=== PATIENT | male | born 1950 | race Caucasian/White ===

== ENCOUNTER → 2023-09-04 10:41 | Outpatient (REF) | payer MEDICARE, BC, SELFPAY ==
[2023-09-04 12:12] LABS: Blood Urea Nitrogen 22 mg/dl (9-20); Calcium 9.9 mg/dl (8.4-10.2); Carbon Dioxide 27 mmol/L (22-30); Chloride 105 mmol/L (98-107); Glucose 98 mg/dl (70-99); HDL Cholesterol 43 mg/dl; LDL Cholesterol, Calculated 120 mg/dl; Potassium 4.8 mmol/L (3.5-5.1); Sodium 138 mmol/L (135-145); Total Cholesterol 207 mg/dl (50-199); Triglyceride 223 mg/dl (10-149); Very Low Density Lipoprotein 44 mg/dl (0-30); eGFR 52.74
== END ==
LOC: REG 10:41
PROVIDERS: ATTENDING PHYSICIAN Internal Medicine Cardiovascular Disease; FAMILY PHYSICIAN Family Medicine
DX: I77.810 Thoracic aortic ectasia (principal); E78.5 Hyperlipidemia, unspecified; I48.0 Paroxysmal atrial fibrillation
CPT/HCPCS: 36415; 80048; 80061

== ENCOUNTER → 2023-09-05 10:13 | Outpatient (REF) | payer MEDICARE, BC, SELFPAY | LOC: REG 10:13 | PROVIDERS: ATTENDING PHYSICIAN Internal Medicine Cardiovascular Disease; FAMILY PHYSICIAN Family Medicine | DX: I77.810 Thoracic aortic ectasia (principal) | CPT/HCPCS: 36415; 82565 ==

== ENCOUNTER → 2023-09-08 07:39 | Outpatient (REF) | payer MEDICARE, BC, SELFPAY | LOC: RAD 07:39 | PROVIDERS: ATTENDING PHYSICIAN Internal Medicine Cardiovascular Disease; FAMILY PHYSICIAN Family Medicine | DX: I77.810 Thoracic aortic ectasia (principal) | CPT/HCPCS: 71275; Q9967 ==

== ENCOUNTER 2024-08-02 13:55 | Inpatient (IN) | payer MEDICARE, BC, SELFPAY ==
[2024-08-02 09:07] VITALS: BP 130/86
[2024-08-02] MEDS: NSS 1000 IV ×2 (09:46→15:21)
[2024-08-02] MEDS: DILAUDID 0.5 MG IV ×2 (09:46→19:50)
--- NOTE | 2024-08-02 09:46 | ED.GENMED ---
History of Present Illness
General
Chief Complaint: Abdominal Symptoms
Source: patient and spouse
Exam Limitations: none
Time Seen by Provider: 08/02/24 09:15
Nursing documentation reviewed up to this point in time: agreed with
History of Present Illness
History of Present Illness:
73-year-old male status post prostatectomy for 5 days of lower abdominal pain cramping some loose stools and constipation nausea without vomiting positive subjective fever no prior episodes, he has had a colonoscopy previously, no history of
diverticulitis still has his appendix no pain with urination
Past History
Past History
ED Past Medical History: HTN, Hypercholesterolemia and Other (kidney stone)
ED Past Surgical History: Urological
Social History
Tobacco: Non-smoker
Alcohol: None
Personal:
Living: with family
Employment: Retired
Review of Systems
Review of Systems
All Other Systems: Not applicable
Constitutional: Reports fever and fatigue
EENT: Reports no symptoms
Respiratory: Reports no symptoms
ABD/GI: Reports abdominal pain, nausea, diarrhea and constipated
: Reports no symptoms
Musculoskeletal: Reports no symptoms
Skin: Reports no symptoms
Neurological: Reports no symptoms
Phy Exam
Physical Exam
Physical Exam:
Physical Exam
General: no apparent distress, not acutely ill
Neck: No jaundice
Heart: s1/s2 regular rate and rhythm, no murmur. equal radial pulses.
Lungs: no acute respiratory distress. clear bilaterally
Abdomen: Tender right greater than left lower abdomen
Neuro: alert and oriented. no focal neurological deficits
Skin: no rash
Psychiatric: well kept. interactive and cooperative
Extremities: no edema.
Course
Orders/Labs/Results
Orders:
Orders
08/02/24 09:41
IV Insert/Care/Rem.- Treatment PRN
0.9% Sodium Chloride 1000 ml [Nss] 1,000 ml IV BOLUS
HYDROmorphone [Dilaudid] 0.5 mg IV NOW STA
Ondansetron Injectable [Zofran] 4 mg IV NOW STA
08/02/24 09:42
CT Abd/Pel (IV only)-DH only Urgent
Comment:
Reason For Exam: Lower abdominal pain
08/02/24 09:43
Complete Blood Count/With Diff Urgent
Comprehensive Metabolic Panel Urgent
08/02/24 11:21
Urinalysis Reflex To Culture Urgent
Date Specimen was Collected: 08/02/24
Time Specimen was Collected: 11:07
08/02/24 13:30
Piperacillin/Tazo 3.375 Gram [Zosyn] 3.375 gram in 50 ml IV NOW
Abnormal Lab Results
08/02/24
09:43
Absolute Neuts (auto) 7.8 H 10^3/uL
(1.4-6.5)
Absolute Lymphs (auto) 0.8 L 10^3/uL
(1.2-3.4)
Absolute Monos (auto) 0.9 H 10^3/uL
(0.1-0.6)
Neutrophils % 80.7 H %
(42.2-75.2)
Lymphocytes % 8.3 L %
(20.5-51.1)
Carbon Dioxide 21 L mmol/L
(22-30)
Glucose 124 H mg/dl
(70-99)
08/02/24 09:43
08/02/24 09:43
Vital Signs
Initial and Last Documented VS:
Initial Vital Signs
Temp Pulse Resp BP Pulse Ox
98.5 F 82 16 130/86 98
08/02/24 09:07 08/02/24 09:07 08/02/24 09:07 08/02/24 09:07 08/02/24 09:07
Last Documented Vital Signs
Temp Pulse Resp BP Pulse Ox
98.5 F 82 16 130/86 98
08/02/24 09:07 08/02/24 09:07 08/02/24 09:07 08/02/24 09:07 08/02/24 09:48
MDM/Problems Addressed
Differential Diagnosis Includes:
Appendicitis diverticulitis UTI other
MDM/Problems Addressed:
Abdominal pain
Chronic conditions affecting care: Previous abdomnial surgery
Acute Exacerbation and/or Progression of Chronic Illness: Previous abdomnial surgery
*Pulse Oximetry
SaO2: 98
Oxygen Mode of Delivery: Room air
Patient hypoxic: no
*Critical Care Note
Total Time (30-74mins, 75-104mins- exclusive of procedures): Not Applicable
Update Note
Update Note:
1:[address] noted patient still with mild tenderness will start on antibiotics
Message sent to hospitalist and colorectal surgery
ED Attending Note
-
Portions of this chart may have been created with voice recognition software.� Occasional wrong word or��sound alike� substitutions may have occurred due to the inherent limitations of voice recognition software.
Discharge Plan
Departure
Patient Disposition: Admit
Date of Disposition: 08/02/24
Time of Disposition: 13:33
Presentation/result/management discussed w/ accepting MD/DO: Hospitalist
Patient with high blood pressure during this ER visit?: No
Condition: Good
Discharge Problem:
Diverticulitis
Prescriptions:
No Action
Advil
2 tab PO PRN PRN (Reason: pain)
azelastine 1 SPRAY aerosol,spray
1 spray intranasal BID
rosuvastatin 10 MG tablet
10 mg PO QPM
Loratadine
10 mg PO PRN PRN (Reason: allergies)
lisinopril [Prinivil] 20 MG tablet
20 mg PO BID
phenazopyridine 200 MG tablet
200 mg PO TID Qty: 15 0RF
metoprolol succinate 50 MG tablet extended release 24 hr
50 mg PO DAILY Qty: 20 0RF
Referrals:
Apolinar Banuelos MD [Family Provider, Family Practice]
Interventions
Interventions:
WP-[id number] Assessment Last Done: 08/02/24 10:00
Discharge Date and Time
Print Language: PALAUAN
[2024-08-02] MEDS: ZOFRAN 4 MG IV (09:47)
[2024-08-02 09:49] LABS: % Basophils 0.4 % (0-2); % Eosinophils 1.1 % (0-6); % Immature Granulocytes 0.4 % (0-0.5); % Lymphocytes 8.3 % (20.5-51.1); % Monocytes 9.1 % (1.7-9.3); % Neutrophils 80.7 % (42.2-75.2); Absolute Eosinophils 0.1 10^3/uL (0-0.7); Absolute Lymphocytes 0.8 10^3/uL (1.2-3.4); Absolute Monocytes 0.9 10^3/uL (0.1-0.6); Absolute Neutrophils 7.8 10^3/uL (1.4-6.5); Hematocrit 41.1 % (39.0-52.0); Hemoglobin 14.3 g/dL (13.0-18.0); Mean Corp Hgb Conc. 34.8 g/dL (33.0-37.0); Mean Corpuscular Hgb 29.9 pg (27.0-31.0); Mean Corpuscular Volume 85.8 fL (80.0-94.0); Mean Platelet Volume 9.4 fL (7.4-10.4); Nucleated Red Blood Cells % 0 % (-); Platelet Count 236 10^3/uL (130-400); Red Blood Cell Count 4.79 10^6/uL (4.70-6.10); Red Cell Dist. Width 12.9 % (11.5-14.5); White Blood Cell Count 9.7 10^3/uL (4.8-10.8)
[2024-08-02 10:11] LABS: ALT (SGPT) 20 U/L (0-50); AST (SGOT) 23 U/L (17-59); Albumin 3.7 g/dl (3.5-5.0); Alkaline Phosphatase 110 U/L (38-126); Blood Urea Nitrogen 20 mg/dl (9-20); Calcium 9.8 mg/dl (8.4-10.2); Carbon Dioxide 21 mmol/L (22-30); Chloride 106 mmol/L (98-107); Glucose 124 mg/dl (70-99); Potassium 4.3 mmol/L (3.5-5.1); Sodium 137 mmol/L (135-145); Total Bilirubin 0.8 mg/dl (0.2-1.3); Total Protein 6.4 g/dl (6.3-8.2); eGFR > 60.00
[2024-08-02 11:34] LABS: Urine Albumin Negative (Neg - Trace); Urine Bilirubin Negative (Negative); Urine Character Clear (Clear); Urine Color Yellow; Urine Glucose Negative (Negative); Urine Ketone Negative (Negative); Urine Leukocyte Negative (Negative); Urine Nitrite Negative (Negative); Urine Occult Blood Negative (Negative); Urine Urobilinogen Negative (Neg - 1+)
[2024-08-02] MEDS: ZOSYN 50 IV ×2 (13:41→19:50)
[2024-08-02 13:44] VITALS: BP 117/86
--- NOTE | 2024-08-02 13:44 | HPS.HSE ---
Family Physician
-
Family Physician: Apolinar Banuelos
Chief Complaint
-
abdominal pain
History of Present Illness
73-year-old male with past medical history of paroxysmal atrial fibrillation on Xarelto, BPH status post TURP, hypertension, hyperlipidemia, nephrolithiasis, right inguinal hernia status post surgery, presenting with 5 days of lower abdominal pain,
cramping and some slight loose stools with overall constipation and nausea without vomiting. He did have chills. No prior history of diverticulitis. Denies any blood in the stool.
Denies smoking or alcohol use.
Medical History
Past Medical History
Past Medical History: Reports Other (paroxysmal atrial fibrillation on Xarelto, BPH status post TURP, hypertension, hyperlipidemia, nephrolithiasis, right inguinal hernia status post surgery,)
Past Surgical History: Reports None
Social History
Tobacco: Non-smoker
Alcohol: None
Drug: None
Family History
Family History: Not pertinent
Allergies / Home Medications
Allergies reflects when Allergies were last updated in [employer].
Home Medications with original date entered in [employer]
Allergy/Medication List:
Allergies
Allergy/AdvReac Type Severity Reaction Status Date / Time
seasonal Allergy Shortness Uncoded 08/02/24 09:10
of Breath
Home Medications
Advil 2 tab PO PRN PRN pain 03/08/11
Loratadine 10 mg PO PRN PRN allergies 11/04/19
azelastine 137 mcg (0.1 %) nasal spray 1 spray intranasal BID 11/04/19
lisinopril 20 mg tablet (Prinivil) 20 mg PO BID 11/04/19
rosuvastatin 10 mg tablet 10 mg PO QPM 11/04/19
metoprolol succinate 50 mg tablet,extended release 24 hr 50 mg PO DAILY #20 tabs 11/06/19
phenazopyridine 200 mg tablet 200 mg PO TID #15 tabs 11/06/19
Review of Systems
-
History Source: Patient
A 12 point ROS was completed and negative except as noted: Yes
Constitutional: Reports No Symptoms
EENT: Reports No Symptoms
Respiratory: Reports No Symptoms
Cardiac: Reports No Symptoms
Abdomen/GI: Reports See HPI
: Reports No Symptoms
Musculoskeletal: Reports No Symptoms
Skin: Reports No Symptoms
Neurological: Reports No Symptoms
Endocrine: Reports No Symptoms
Hematologic/Lymphatic: Reports No Symptoms
Psych: Reports No Symptoms
Physical Exam
Vital Signs
Vital Signs
Temp Pulse Resp BP Pulse Ox
98.5 F 82 16 130/86 98
08/02/24 09:07 08/02/24 09:07 08/02/24 09:07 08/02/24 09:07 08/02/24 09:48
Physical Exam
General: Well Developed, Well Nourished and No Apparent Distress
HEENT: NormoCephalic, Moist mucous membranes and Atraumatic
Respiratory: Clear
Cardiac: S1/S2 and Regular Rhythm; No Murmur or Rub
GI: Soft, Non Distended, Normal Bowel Sounds and Tender (lower quadrants ); No Organomegaly
Rectal: Deferred by Provider
Musculoskeletal: No Clubbing, No Cyanosis and No Edema
Skin: No Rash
Neuro: Nonfocal/grossly intact
Laboratory Results
-
08/02/24 09:43
08/02/24 09:43
Laboratory Results
Total Bilirubin 0.8 mg/dl (0.2-1.3) 08/02/24 09:43
AST 23 U/L (17-59) 08/02/24 09:43
ALT 20 U/L (0-50) 08/02/24 09:43
Alkaline Phosphatase 110 U/L (38-126) 08/02/24 09:43
Data Reviewed
-
Lab Data: Labs Reviewed by me
Old Records: Reviewed
Impression/Plan
-
IMPRESSION:
PLAN:
# Acute diverticulitis with extraluminal gas/fluid collection
- N.p.o.
- IV fluids
- Zosyn
- Dilaudid, Zofran as needed
-Hold Xarelto in case surgery recommended
- Colorectal surgery consulted
Paroxysmal atrial fibrillation
- Hold Xarelto
BPH status post TURP
Essential hypertension
- Continue metoprolol, lisinopril
Hyperlipidemia
- Continue statin
Nephrolithiasis status post surgery
- Now with stable postsurgical incisional hernia
History of right inguinal hernia status post surgery
Full code
DVT prophylaxis�SCDs
N.p.o.
[2024-08-02 14:47] VITALS: BP 141/82
[2024-08-02 14:48] VITALS: BMI 25.6
--- NOTE | 2024-08-02 16:28 | CON.CRS ---
Consultation
-
Date/Time Consultation Performed: 08/02/2024
Performing Provider: Pascual Saunders MD
Reason for Consultation: Diverticulitis
Medical History
-
History of Present Illness:
73-year-old male with PMH of A-fib (on Xarelto, last dose PM of 08/01), prostate cancer s/p prostatectomy, HTN, HLD, history of kidney stones who presents with 5-6 days of persistent lower abdominal pain. It did worsen 2 to 3 days ago and has been
stable since. He denies any N/V. His BMs have been more frequent and looser, but denies diarrhea or hematochezia. Denies urinary symptoms. Last colonoscopy was 08/[address] Small, which showed diverticulosis, hemorrhoids and 2 rectal HP's,
recommended to repeat in 5 years. In the ED, WBC 9.7, CT showing diverticulitis with localized perforation and collection of about 2 x 1.5 cm.
Past Medical History
Past Medical History: Other (as above)
Past Surgical History: Other (TURP, right IHR, vasectomy, prostatectomy)
Social History
Tobacco: Non-Smoker
Alcohol: None
Drug: None
Personal:
Family History
Family History: Other (Colon cancer in father at age 65)
Allergies / Home Medications
Allergy/AdvReac Type Severity Reaction Status Date / Time
seasonal Allergy Shortness Uncoded 08/02/24 09:10
of Breath
�Medication �Instructions �Recorded �Confirmed �Type
lisinopril 20 mg tablet (Prinivil) 20 mg PO BID 11/04/19 08/02/24 History
rosuvastatin 10 mg tablet 10 mg PO QPM 11/04/19 08/02/24 History
metoprolol succinate 50 mg 25 mg PO QPM 08/02/24 08/02/24 History
tablet,extended release 24 hr
rivaroxaban 20 mg tablet (Xarelto) 20 mg PO QPM 08/02/24 08/02/24 History
Review of Systems
-
A 10 point review of systems was completed, and was negative except as per HPI.
Physical Exam
Vital Signs
Temp 97.6 F 08/02/24 14:47
Pulse 82 08/02/24 14:47
Resp Rate 18 08/02/24 14:47
Blood pressure 141/82 08/02/24 14:47
SaO2 99 08/02/24 15:43
08/01/24 08/02/24 08/03/24
06:59 06:59 06:59
Actual Weight 76.26 kg
Body Mass Index (BMI) 25.6
Lab Results / Allergies
08/02/24 09:43
08/02/24 09:43
WBC 9.7 10^3/uL (4.8-10.8) 08/02/24 09:43
Hgb 14.3 g/dL (13.0-18.0) 08/02/24 09:43
Hct 41.1 % (39.0-52.0) 08/02/24 09:43
Plt Count 236 10^3/uL (130-400) 08/02/24 09:43
Abs Immat Gran (auto) 0.0 10^3/uL (0-0.05) 08/02/24 09:43
Neutrophils % 80.7 % (42.2-75.2) H 08/02/24 09:43
Allergy/AdvReac Type Severity Reaction Status Date / Time
seasonal Allergy Shortness Uncoded 08/02/24 09:10
of Breath
Physical Exam
General: Well Developed, Well Nourished and No Apparent Distress
HEENT: Normocephalic and Atraumatic
Respiratory: Non Labored Respirations
GI: Soft, Non Distended and Tender (Mildly tender in the bilateral lower quadrants, no rebound or guarding)
Skin: Warm and Dry
Neuro: AO x 3
Assessment / Plan
-
73-year-old male with PMH of A-fib (on Xarelto, last dose PM of 08/01), prostate cancer s/p prostatectomy, HTN, HLD, history of kidney stones who presents with 5-6 days of persistent lower abdominal pain. It did worsen 2 to 3 days ago and has been
stable since. He denies any N/V. His BMs have been more frequent and looser, but denies diarrhea or hematochezia. Denies urinary symptoms. Last colonoscopy was 08/[address] Small, which showed diverticulosis, hemorrhoids and 2 rectal HP's,
recommended to repeat in 5 years. In the ED, WBC 9.7, CT showing diverticulitis with localized perforation and collection of about 2 x 1.5 cm.
AFVSS
�Acute diverticulitis, first episode; no acute surgical intervention currently
�Discussed treatment options including nonoperative management and surgery, and discussed risks regarding each, including but not limited to, urgent surgery will likely include larger incision and ostomy creation
�Okay for clears with p.o. meds
�Continue IV Zosyn
�Pain control with Dilaudid as needed; recommend adding Toradol and Tylenol ATC
� Recommend DVT PPx with Lovenox; hold Xarelto in case procedure needed
� OOB/I-S
� Appreciate hospitalist
[2024-08-02] MEDS: TOPROL XL 25 MG PO (17:21)
[2024-08-02] MEDS: CRESTOR 10 MG PO (17:21)
[2024-08-02] MEDS: ZESTRIL 20 MG PO (19:50)
[2024-08-02 23:00] VITALS: BP 110/68
[2024-08-03] MEDS: ZOSYN 50 IV ×4 (01:13→20:04)
[2024-08-03] MEDS: NSS 1000 IV (01:14)
[2024-08-03] MEDS: DILAUDID 0.5 MG IV ×2 (01:14→06:53)
[2024-08-03 05:18] LABS: % Basophils 0.7 % (0-2); % Eosinophils 2.5 % (0-6); % Immature Granulocytes 0.5 % (0-0.5); % Lymphocytes 11.7 % (20.5-51.1); % Monocytes 10.6 % (1.7-9.3); Absolute Basophils 0.1 10^3/uL (0-0.2); Absolute Eosinophils 0.2 10^3/uL (0-0.7); Absolute Lymphocytes 0.9 10^3/uL (1.2-3.4); Absolute Monocytes 0.8 10^3/uL (0.1-0.6); Absolute Neutrophils 5.4 10^3/uL (1.4-6.5); Hematocrit 37.6 % (39.0-52.0); Hemoglobin 12.6 g/dL (13.0-18.0); Mean Corp Hgb Conc. 33.5 g/dL (33.0-37.0); Mean Corpuscular Hgb 29.9 pg (27.0-31.0); Mean Corpuscular Volume 89.3 fL (80.0-94.0); Mean Platelet Volume 9.3 fL (7.4-10.4); Nucleated Red Blood Cells % 0 % (-); Platelet Count 229 10^3/uL (130-400); Red Blood Cell Count 4.21 10^6/uL (4.70-6.10); Red Cell Dist. Width 13.1 % (11.5-14.5); White Blood Cell Count 7.3 10^3/uL (4.8-10.8)
[2024-08-03 05:45] LABS: ALT (SGPT) 15 U/L (0-50); AST (SGOT) 17 U/L (17-59); Albumin 3.2 g/dl (3.5-5.0); Alkaline Phosphatase 90 U/L (38-126); Blood Urea Nitrogen 20 mg/dl (9-20); Carbon Dioxide 22 mmol/L (22-30); Chloride 108 mmol/L (98-107); Estimated Creatinine Clearance 44 ml/min; Glucose 82 mg/dl (70-99); Potassium 4.6 mmol/L (3.5-5.1); Sodium 136 mmol/L (135-145); Total Protein 5.5 g/dl (6.3-8.2); eGFR 52.41
[2024-08-03 07:31] VITALS: BP 106/59
[2024-08-03] MEDS: ZESTRIL PO (09:18)
--- NOTE | 2024-08-03 09:42 | W.PN.HOSP.TC ---
Addendum entered and electronically signed by Dominga Luu MD 08/03/24 11:10:
Addendum
Known CKD stage II
Creatinine seems KELLY on CKD II
Holding Lisinopril since SBP on low side
Monitor for retention, known Prostate cancer
End
Original Note:
Today's Communication/Plan
-
Can advance diet
Can resume Xarelto if ok with surgery
Asked pt to cut back on Dialudid and use Tylenol as needed
Assessment / Plan
Assessment / Plan
Physical Exam
General: Well Developed, Well Nourished and No Apparent Distress
HEENT: Normocephalic, Moist mucous membranes and Atraumatic
Respiratory: Clear
Cardiac: S1/S2, + murmur.
GI: Soft, Non Distended, Normal Bowel Sounds and very mild tender (lower quadrants )
Rectal: no bleeding
Musculoskeletal: No Clubbing, No Cyanosis and No Edema
Skin: No Rash
Neuro: Nonfocal/grossly intact
Psych: calm
# Acute diverticulitis with extraluminal gas/fluid collection
He is feeling better, he reported Dilaudid was for gas pain, insomnia per staff
Exam, no significant tenderness noted
Can advance diet
c/w IV Zosyn
- Colorectal surgery consulted
Paroxysmal atrial fibrillation
- Hold Xarelto
BPH status post TURP
Essential hypertension
- Continue metoprolol, lisinopril
Hyperlipidemia
- Continue statin
Nephrolithiasis status post surgery
- Now with stable postsurgical incisional hernia
History of right inguinal hernia status post surgery
Total time spent to see the patient, examine the patient, review data and lab result, discuss treatment plan with patient, nursing staff around 55 minutes
Anticipated Discharge: Within 24 hours
Subjective/Interval History
-
Date of Service: August 03, 2024
Less abdominal pain
No nausea
No fevers
Objective Data
-
Labs:
Laboratory Results
08/03/24
04:30
WBC 7.3
Hgb 12.6 L
Hct 37.6 L
Plt Count 229
Sodium 136
Potassium 4.6
Chloride 108 H
Carbon Dioxide 22
BUN 20
Creatinine 1.4 H
Glucose 82
Calcium 9.0
Total Bilirubin 1.0
AST 17
ALT 15
Alkaline Phosphatase 90
Vital Signs:
Vital Signs
Temp Pulse Resp BP Pulse Ox
98.4 F 68 16 106/59 95
08/03/24 07:31 08/03/24 07:31 08/03/24 07:31 08/03/24 07:31 08/03/24 07:31
I&O
08/02/24 08/03/24 08/04/24
06:59 06:59 06:59
Output Total 800 / 800 125 / 125
Balance -800 / -800 -125 / -125
--- NOTE | 2024-08-03 11:14 | W.PN.CRS1 ---
Addendum entered and electronically signed by Pascual Saunders MD 08/03/24 11:27:
I saw and examined the patient.
The SPIRITUAL CARE COORDINATOR's note was reviewed and I agree with the note.
Comment:
73-year-old male with PMH of A-fib (on Xarelto, last dose PM of 08/01), prostate cancer s/p prostatectomy, HTN, HLD, history of kidney stones who presents with 5-6 days of persistent lower abdominal pain. It did worsen 2 to 3 days [employer] and has been
stable since. He denies any N/V. His BMs have been more frequent and looser, but denies diarrhea or hematochezia. Denies urinary symptoms. Last colonoscopy was 08/[address] Small, which showed diverticulosis, hemorrhoids and 2 rectal HP's,
recommended to repeat in 5 years. In the ED, WBC 9.7, CT showing diverticulitis with localized perforation and collection of about 2 x 1.5 cm. Admitted and being treated with non-op measures
AFVSS, ABD soft, nondistended, minimally tender, no R/G; palpable epigastric hernia repair easily reducible
WBC 7.3 from 9.7, CRP 148 from 183, Cr 1.4
�Acute diverticulitis, first episode; no acute surgical intervention currently
�Cont non-op
�Okay for clears with p.o. meds, advance to regular for lunch/dinner
�Continue IV Zosyn
�Pain control with Dilaudid as needed; recommend Tylenol ATC and tramadol PRN
�Start subQ hep; hold Xarelto; if tolerating regular, ok to restart tmrw
� OOB/I-S
� Appreciate hospitalist; elevation of Cr, concern for mild KELLY, cont IVF
Dispo- if tolerating regular, ok for d/c once medically clear
Original Note:
Today's Communication / Plan
-
ADAT
C/W ABX
Assessment/Plan
-
73 yo male presenting with diverticulitis with symptomatic improvement on IV ABX
AFVSS
Cr mildly elevated from previous
No leukocytosis, CRP trending down
Exam improved
--Clear liquids initiated this AM, ok to ADAT to low residue if no worsening pain
--Xarelto on hold in case surgery warranted, ok to resume tomorrow if tolerating dietary advancements
--c/w antibiotics
--Medical management as per primary team
Subjective Data
Subjective Data
Date of Service: August 03, 2024
Patient seen and examined at bedside with Dr. Saunders. Pain much improved. Denies n/v. Passing flatus.
Objective Data
-
Vital Signs
Temp Pulse Resp BP Pulse Ox
98.4 F 68 16 106/59 95
08/03/24 07:31 08/03/24 07:31 08/03/24 07:31 08/03/24 07:31 08/03/24 07:31
Intake & Output
08/02/24 08/03/24 08/04/24
06:59 06:59 06:59
Intake Total 480 / 480
Output Total 800 / 800 125 / 125
Balance -800 / -800 355 / 355
Intake:
Oral fluids 480 / 480
Output:
Urine, Voided 800 / 800 125 / 125
Lab Results
08/03/24 04:30
08/03/24 04:30
Physical Exam
-
General: No Acute Distress
Abdomen: Soft, Non Distended and Tender (minimal to LLQ)
Skin: Warm and Dry
[2024-08-03 15:10] VITALS: BP 112/65
--- NOTE | 2024-08-03 15:52 | CM ---
Met with patient to obtain information for assessment. Patient stated that he lives with his and sons in a two story house with no steps to enter. He is independent with his ADLs, personal care, dressing and bathing. 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 He has no DME. He has not been to a SNF. He has not had VN in the past.
Patient has a prescription plan and uses, [facility] for all of his medications.
Patient's PCP is, Apolinar Banuelos.
Plan: Case management will continue to follow and assist with discharge planning. Patient should be home no needs.
[2024-08-03] MEDS: HEPARIN 5000 UNITS SC (16:01)
[2024-08-03] MEDS: TOPROL XL 25 MG PO (17:05)
[2024-08-03] MEDS: CRESTOR 10 MG PO (17:05)
[2024-08-03] MEDS: TYLENOL 1000 MG PO (20:07)
[2024-08-03 23:08] VITALS: BP 109/73
[2024-08-04] MEDS: FLUSH (NSS) 1 FLUSH IV (01:25)
[2024-08-04] MEDS: ZOSYN 50 IV ×4 (01:25→19:58)
[2024-08-04] MEDS: HEPARIN 5000 UNITS SC ×2 (01:25→07:39)
[2024-08-04] MEDS: TYLENOL 1000 MG PO (02:43)
[2024-08-04 05:54] LABS: Blood Urea Nitrogen 21 mg/dl (9-20); Calcium 8.5 mg/dl (8.4-10.2); Carbon Dioxide 23 mmol/L (22-30); Chloride 108 mmol/L (98-107); Estimated Creatinine Clearance 36 ml/min; Glucose 110 mg/dl (70-99); Potassium 4.4 mmol/L (3.5-5.1); Sodium 138 mmol/L (135-145); eGFR 41.52
[2024-08-04 07:09] VITALS: BP 124/82
[2024-08-04] MEDS: NSS 1000 IV ×3 (07:39→19:58)
--- NOTE | 2024-08-04 09:40 | W.PN.HOSP.TC ---
Today's Communication/Plan
-
IVF
Bladder scan
Consult nephrology
Resume xarelto
Assessment / Plan
Assessment / Plan
Physical Exam
General: Well Developed, Well Nourished and No Apparent Distress
HEENT: Normocephalic, Moist mucous membranes and Atraumatic
Respiratory: Clear
Cardiac: S1/S2, + murmur.
GI: Soft, Non Distended, Normal Bowel Sounds and not tender.
Rectal: no bleeding
Musculoskeletal: No Clubbing, No Cyanosis and No Edema
Skin: No Rash
Neuro: Nonfocal/grossly intact
Psych: calm
# Acute diverticulitis with extraluminal gas/fluid collection
He is feeling better, he is tolerating diet
No nausea
No abdominal pain or tenderness on exam
c/w IV Zosyn
- Colorectal surgery consulted
# KELLY
Suspect CKD stage II
Creatinine 1.7
Possible related to contrast induced injury or infection related
Holding Lisinopril
CT no hydronephrosis
No retention on bladder scan , known Prostate cancer
Give IVF
Consult nephrology
Paroxysmal atrial fibrillation
-Resume Xarelto
BPH status post TURP
Essential hypertension
- Continue metoprolol, lisinopril
Hyperlipidemia
- Continue statin
Nephrolithiasis status post surgery
- Now with stable postsurgical incisional hernia
History of right inguinal hernia status post surgery
Total time spent to see the patient, examine the patient, review data and lab result, discuss treatment plan with patient, nursing staff around 55 minutes
Anticipated Discharge: Within 24 hours
Subjective/Interval History
-
Date of Service: August 04, 2024
He feels better
No nausea
No sob
No chest pain
Had BM, no rectal bleeding
Objective Data
-
Labs:
Laboratory Results
08/04/24
04:31
Sodium 138
Potassium 4.4
Chloride 108 H
Carbon Dioxide 23
BUN 21 H
Creatinine 1.7 H
Glucose 110 H
Calcium 8.5
Vital Signs:
Vital Signs
Temp Pulse Resp BP Pulse Ox
97.6 F 68 18 124/82 98
08/04/24 07:09 08/04/24 07:09 08/04/24 07:09 08/04/24 07:09 08/04/24 07:09
I&O
08/03/24 08/04/24 08/05/24
06:59 06:59 06:59
Intake Total 1780 / 1780
Output Total 800 / 800 625 / 625
Balance -800 / -800 1155 / 1155
--- NOTE | 2024-08-04 13:00 | W.CON.NEPH ---
Consultation
-
Date/Time Consultation Requested: August 04, 2024 at 7 AM
Date/Time Consultation Performed: August 04, 2024 at 12 PM
Requesting Provider: Dr. Luu
Performing Provider: Dr. Cuadra
Reason for Consultation: Acute kidney injury
Medical History
-
Chief Complaint: Acute kidney injury
History of Present Illness:
73-year-old male with past medical history of paroxysmal atrial fibrillation on Xarelto, BPH status post TURP, hypertension, hyperlipidemia, nephrolithiasis, right inguinal hernia status post surgery, presenting with 5 days of lower abdominal pain,
cramping and some slight loose stools with overall constipation and nausea without vomiting.
He has not eaten for about 5 days. Denies NSAID use.
Renal consult for acute kidney injury with a creatinine of 1.7 with baseline 1.2-1.4
Past Medical History
paroxysmal atrial fibrillation on Xarelto, BPH status post TURP, hypertension, hyperlipidemia, nephrolithiasis, right inguinal hernia status post surgery,
Social History
Tobacco: Non-Smoker
Alcohol: None
Family History
No renal disease
Allergies / Home Medications
Allergy/AdvReac Type Severity Reaction Status Date / Time
seasonal Allergy Shortness Uncoded 08/02/24 09:10
of Breath
�Medication �Instructions �Recorded �Confirmed �Type
lisinopril 20 mg tablet (Prinivil) 20 mg PO BID 11/04/19 08/02/24 History
rosuvastatin 10 mg tablet 10 mg PO QPM 11/04/19 08/02/24 History
metoprolol succinate 50 mg 25 mg PO QPM 08/02/24 08/02/24 History
tablet,extended release 24 hr
rivaroxaban 20 mg tablet (Xarelto) 20 mg PO QPM 08/02/24 08/02/24 History
Review of Systems
-
Currently no chest pain shortness of breath nausea or vomiting appetite has improved. No abdominal pain
All other systems: Negative unless noted
Physical Exam
Vital Signs
Vital Signs
Temp Pulse Resp BP Pulse Ox
97.6 F 68 18 124/82 97
08/04/24 07:09 08/04/24 07:09 08/04/24 07:09 08/04/24 07:09 08/04/24 09:45
Lab Results
WBC 7.3 10^3/uL (4.8-10.8) 08/03/24 04:30
RBC 4.21 10^6/uL (4.70-6.10) L 08/03/24 04:30
Hgb 12.6 g/dL (13.0-18.0) L 08/03/24 04:30
Hct 37.6 % (39.0-52.0) L 08/03/24 04:30
Plt Count 229 10^3/uL (130-400) 08/03/24 04:30
Sodium 138 mmol/L (135-145) 08/04/24 04:31
Potassium 4.4 mmol/L (3.5-5.1) 08/04/24 04:31
Chloride 108 mmol/L (98-107) H 08/04/24 04:31
Carbon Dioxide 23 mmol/L (22-30) 08/04/24 04:31
BUN 21 mg/dl (9-20) H 08/04/24 04:31
Creatinine 1.7 mg/dL (0.7-1.3) H 08/04/24 04:31
eGFR 41.52 08/04/24 04:31
Glucose 110 mg/dl (70-99) H 08/04/24 04:31
Calcium 8.5 mg/dl (8.4-10.2) 08/04/24 04:31
Albumin 3.2 g/dl (3.5-5.0) L 08/03/24 04:30
Physical Exam
General no acute distress
HEENT no cephalic atraumatic extraocular muscle intact no scleral icterus no JVD neck supple
lungs clear to auscultation bilateral
heart regular S1-S2 positive
abdomen soft nontender positive bowel sounds
extremities no edema pulses present bilateral
Neurologically nonfocal alert and oriented x 3
Skin no lesions no abrasions no petechiae
Psych normal affect no bizarre behavior
Data Reviewed
-
CT Scan: Image Personally Visualized and interpreted
Labs: Labs Reviewed by me, Discussed with Patient and Discussed with Family
Assessment/Plan
-
73-year-old male with past medical history of paroxysmal atrial fibrillation on Xarelto, BPH status post TURP, hypertension, hyperlipidemia, nephrolithiasis, right inguinal hernia status post surgery, presenting with 5 days of lower abdominal pain,
cramping and some slight loose stools with overall constipation and nausea without vomiting.
He has not eaten for about 5 days. Denies NSAID use.
Renal consult for acute kidney injury with a creatinine of 1.7 with baseline 1.2-1.4
Impression.
Acute on chronic kidney disease stage IIIa.
Diverticulitis
Paroxysmal atrial fibrillation.
Status post prostatectomy prostate cancer.
Hypertension stable.
History of renal calculi.
Plan.
No obstructive pathology on CAT scan
Urinalysis no protein or hematuria.
Discontinue lisinopril.
IV fluids normal saline.
Antibiotics
--- NOTE | 2024-08-04 15:11 | W.PN.CRS1 ---
Addendum entered and electronically signed by Pascual Saunders MD 08/05/24 00:21:
Delayed entry. I saw and examined the patient the morning of 08/04/2024.
The STATION WORKER's note was reviewed and I agree with the note.
Colorectal surgery to sign off. Please call for any questions or concerns. Follow-up with me in 2 to 4 weeks.
Original Note:
Today's Communication / Plan
-
Regular diet
ABX
Assessment/Plan
-
73 yo male presenting with diverticulitis with symptomatic improvement on IV ABX
AFVSS
Cr trending up
CRP continues trending down
Exam improved
--Ok for regular diet
--Xarelto on hold, ok to resume from surgical standpoint (pt notes he would like to hold off until he goes home)
--c/w antibiotics
--Medical management as per primary team
Surgery to follow peripherally, please call with questions/concerns
Subjective Data
Subjective Data
Date of Service: August 04, 2024
Pt seen and examined at bedside with Dr. Saunders. Reports pain improved/nearly resolved. Tolerating diet. Passing flauts and some stools which have been quite dark but now getting credit administrator. Denies fever/chills.
Objective Data
-
Vital Signs
Temp Pulse Resp BP Pulse Ox
97.6 F 68 18 124/82 97
08/04/24 07:09 08/04/24 07:09 08/04/24 07:09 08/04/24 07:09 08/04/24 09:45
Intake & Output
08/03/24 08/04/24 08/05/24
06:59 06:59 06:59
Intake Total 1780 / 1780
Output Total 800 / 800 625 / 625
Balance -800 / -800 1155 / 1155
Intake:
Oral fluids 1680 / 1680
IV piggybacks 100 / 100
Output:
Urine, Voided 800 / 800 625 / 625
Other:
Number of approximated MODERATE 2
amounts of urine
Lab Results
08/03/24 04:30
08/04/24 04:31
Physical Exam
-
General: No Acute Distress
Abdomen: Soft, Non Distended and Non Tender
Skin: Warm and Dry
[2024-08-04 15:20] VITALS: BP 130/79
[2024-08-04] MEDS: TOPROL XL 25 MG PO (17:50)
[2024-08-04] MEDS: XARELTO 15 MG PO (17:50)
[2024-08-04] MEDS: CRESTOR 10 MG PO (17:50)
[2024-08-04] MEDS: TUMS CHEWABLE TABLET 200 MG PO (22:33)
[2024-08-04 23:30] VITALS: BP 124/80
[2024-08-05] MEDS: NSS 1000 IV ×2 (02:41→09:53)
[2024-08-05] MEDS: ZOSYN 50 IV ×2 (02:41→08:44)
[2024-08-05 07:01] LABS: Hematocrit 36.5 % (39.0-52.0); Hemoglobin 12.4 g/dL (13.0-18.0); Mean Corpuscular Volume 88.4 fL (80.0-94.0); Mean Platelet Volume 9.3 fL (7.4-10.4); Platelet Count 245 10^3/uL (130-400); Red Blood Cell Count 4.13 10^6/uL (4.70-6.10); Red Cell Dist. Width 12.9 % (11.5-14.5); White Blood Cell Count 6.6 10^3/uL (4.8-10.8)
[2024-08-05 07:35] LABS: Blood Urea Nitrogen 13 mg/dl (9-20); Carbon Dioxide 21 mmol/L (22-30); Chloride 112 mmol/L (98-107); Estimated Creatinine Clearance 44 ml/min; Glucose 94 mg/dl (70-99); Potassium 4.5 mmol/L (3.5-5.1); Sodium 140 mmol/L (135-145); eGFR 52.41
[2024-08-05 07:42] VITALS: BP 127/83
--- NOTE | 2024-08-05 11:05 | W.PN.NEPH.PH ---
Today's Communication / Plan
-
follow BMP
Assessment/Plan
-
73-year-old male with past medical history of paroxysmal atrial fibrillation on Xarelto, BPH status post TURP, hypertension, hyperlipidemia, nephrolithiasis, right inguinal hernia status post surgery, presenting with 5 days of lower abdominal pain,
cramping and some slight loose stools with overall constipation and nausea without vomiting.
He has not eaten for about 5 days. Denies NSAID use.
Renal consult for acute kidney injury with a creatinine of 1.7 with baseline 1.2-1.4
Impression.
Acute on chronic kidney disease stage IIIa.
Diverticulitis
Paroxysmal atrial fibrillation.
Status post prostatectomy prostate cancer.
Hypertension stable.
History of renal calculi.
Plan.
no lisinopril given stable BP
Cr at baseline 1.1-1.4
abx per primary team
-
-
Date of Service: August 05, 2024
CC / HPI / ROS
-
Chief Complaint:
KELLY
History of Present Illness:
KELLY/Cr down to 1.4
BP stable off ACEI
still with looses stools with mucus
mild acidosis
Review of Systems:
no CP/SOB
Labs
-
Labs:
WBC 6.6 10^3/uL (4.8-10.8) 08/05/24 06:28
RBC 4.13 10^6/uL (4.70-6.10) L 08/05/24 06:28
Hgb 12.4 g/dL (13.0-18.0) L 08/05/24 06:28
Hct 36.5 % (39.0-52.0) L 08/05/24 06:28
Plt Count 245 10^3/uL (130-400) 08/05/24 06:28
Sodium 140 mmol/L (135-145) 08/05/24 06:28
Potassium 4.5 mmol/L (3.5-5.1) 08/05/24 06:28
Chloride 112 mmol/L (98-107) H 08/05/24 06:28
Carbon Dioxide 21 mmol/L (22-30) L 08/05/24 06:28
BUN 13 mg/dl (9-20) 08/05/24 06:28
Creatinine 1.4 mg/dL (0.7-1.3) H 08/05/24 06:28
eGFR 52.41 08/05/24 06:28
Glucose 94 mg/dl (70-99) 08/05/24 06:28
Calcium 9.0 mg/dl (8.4-10.2) 08/05/24 06:28
Albumin 3.2 g/dl (3.5-5.0) L 08/03/24 04:30
Physical Exam
-
Vital Signs:
Vital Signs
Temp Pulse Resp BP Pulse Ox
97.6 F 64 16 127/83 97
08/05/24 07:42 08/05/24 07:42 08/05/24 07:42 08/05/24 07:42 08/05/24 07:42
Cardiovascular:: Regular rate and rhythm
Respiratory:: Bilateral: CTA
Lung Excursion:: Normal
Abdomen:: Nontender and Soft
Bowel Sounds:: Normal
Extremity Edema:: None: Bilateral:
--- NOTE | 2024-08-05 12:22 | W.PN.HOSP.TC ---
Today's Communication/Plan
-
Augmentin 875 twice daily for 12 more days complete 14-day course
Follow-up CBC, BMP outpatient
Follow-up colorectal surgery, GI, PCP, water/wastewater engineer outpatient
Assessment / Plan
Assessment / Plan
Physical Exam
General: Well Developed, Well Nourished and No Apparent Distress
HEENT: Normocephalic, Moist mucous membranes and Atraumatic
Respiratory: Clear
Cardiac: S1/S2, + murmur.
GI: Soft, Non Distended, Normal Bowel Sounds and not tender.
Rectal: no bleeding
Musculoskeletal: No Clubbing, No Cyanosis and No Edema
Skin: No Rash
Neuro: Nonfocal/grossly intact
Psych: calm
# Acute diverticulitis with extraluminal gas/fluid collection
He is feeling better, he is tolerating diet, low residue
No nausea
No abdominal pain or tenderness on exam
Zosyn, discharged on Augmentin for 12 more days to complete 14-day course
- Colorectal surgery consulted�follow-up outpatient
� Follow CBC outpatient
# KELLY, resolved
Suspect CKD stage II
Possible related to contrast induced injury or infection related
Supposedly, at this time BP is under control
CT no hydronephrosis
No retention on bladder scan , known Prostate cancer
Give IVF
Follow-up outpatient with water/wastewater engineer, [facility] outpatient
Paroxysmal atrial fibrillation
-Resume Xarelto
BPH status post TURP
Essential hypertension
- Continue metoprolol
Hyperlipidemia
- Continue statin
Nephrolithiasis status post surgery
- Now with stable postsurgical incisional hernia
History of right inguinal hernia status post surgery
More than 30 minutes spent in discharge including
Final examination of the patient
Summarizing hospital stay
Instructions for continuing care to all relevant caregivers
Preparation of discharge records, prescriptions, and referral forms
Total time spent (in minutes): 37
Anticipated Discharge: Today
Subjective/Interval History
-
Date of Service: August 05, 2024
Tolerating diet, renal function back to baseline
Objective Data
-
Labs:
Laboratory Results
08/05/24
06:28
WBC 6.6
Hgb 12.4 L
Hct 36.5 L
Plt Count 245
Sodium 140
Potassium 4.5
Chloride 112 H
Carbon Dioxide 21 L
BUN 13
Creatinine 1.4 H
Glucose 94
Calcium 9.0
Vital Signs:
Vital Signs
Temp Pulse Resp BP Pulse Ox
97.6 F 64 16 127/83 98
08/05/24 07:42 08/05/24 07:42 08/05/24 07:42 08/05/24 07:42 08/05/24 11:03
I&O
08/04/24 08/05/24 08/06/24
06:59 06:59 06:59
Intake Total 1780 / 1780 3850 / 3850 530 / 530
Output Total 625 / 625 1645 / 1645
Balance 1155 / 1155 2205 / 2205 530 / 530
Review of Systems
-
History Source: Patient
All other systems: Not reviewed unless documented
Data Reviewed
-
CT Scan: Report Reviewed by me
Labs: Labs Reviewed by me
--- NOTE | 2024-08-05 12:25 | W.DS.TRANS ---
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
-
Discharge Instructions:
Discharge Diagnosis/Procedures Acute diverticulitis with extraluminal gas/fluid
collection
# KELLY
Diet Low Residue,Low Cholesterol,Low Fat
Blood Work cbc and cmp in 5-7 days with pcp
Instructions:
Stand-Alone Forms:
Changes to Home Medications: Yes
Discharge Medications:
DC Medications w/original date entered in [employer]
rosuvastatin 10 mg tablet 10 mg PO QPM 11/04/19
metoprolol succinate 50 mg tablet,extended release 24 hr 25 mg PO QPM 08/02/24
rivaroxaban 20 mg tablet (Xarelto) 20 mg PO QPM 08/02/24
amoxicillin 875 mg-potassium clavulanate 125 mg tablet 1 tab PO Q12H 12 days #24 tabs 08/05/24
Home Medication Changes
amoxicillin 875 mg-potassium clavulanate 125 mg tablet 1 tab PO Q12H 12 days #24 tabs 08/05/24
Pending Results: No
[2024-08-05 13:03] VITALS: BP 125/76
--- NOTE | 2024-08-05 14:10 | CM ---
Patient discharged today
no needs
IMM not signed-patient had left prior to CM visit
PLAN: Home no needs
to transport
== END 2024-08-05 14:00 | disposition home or self-care (01) | DRG 392 ==
LOC: 4 EAST ACU 13:55
PROVIDERS: Internal Medicine; Registered Nurse; ADMITTING PHYSICIAN Hospitalist; ATTENDING PHYSICIAN Internal Medicine; CONSULT PHYSICIAN Surgery; EMERGENCY PHYSICIAN Emergency Medicine; FAMILY PHYSICIAN Family Medicine; OTHER PHYSICIAN Internal Medicine Nephrology
DX: K57.32 Diverticulitis of large intestine without perforation or abscess without bleeding (principal); N17.9 Acute kidney failure, unspecified; I12.9 Hypertensive chronic kidney disease with stage 1 through stage 4 chronic kidney disease, or unspecified chronic kidney disease; N18.2 Chronic kidney disease, stage 2 (mild); Z79.01 Long term (current) use of anticoagulants; I48.0 Paroxysmal atrial fibrillation; N40.0 Benign prostatic hyperplasia without lower urinary tract symptoms; Z90.79 Acquired absence of other genital organ(s); E78.00 Pure hypercholesterolemia, unspecified; Z87.442 Personal history of urinary calculi; K43.2 Incisional hernia without obstruction or gangrene; Z85.46 Personal history of malignant neoplasm of prostate; Z79.899 Other long term (current) drug therapy; Z80.0 Family history of malignant neoplasm of digestive organs
CPT/HCPCS: 74177; 80048; 80053; 81003; 85025; 85027; 86140; 96361; 96365; 96375; 99284; Q9967